=== PATIENT | female | born 1990 | race Caucasian/White ===

== ENCOUNTER 2018-02-28 17:50 | Emergency (ER) | payer SELFPAY ==
[2018-02-28] MEDS ORDERED: Ketorolac 60 MG/2 ML SDV IM ONE (18:13)
--- NOTE | 2018-02-28 18:14 | EDM.PDOC ---
ED HPI GENERAL MEDICAL PROBLEM - General Chief Complaint: Back Pain or Injury Stated Complaint: BACK PAIN Time Seen by Provider: 02/28/18 18:09 Source of Information: Reports: Patient History Limitations: Reports: No Limitations - History of Present Illness INITIAL COMMENTS - FREE TEXT/NARRATIVE: HISTORY AND PHYSICAL: []28-year-old female presenting with left hip pain History of Present Illness: []Patient has history of sciatica in the right now she awakened yesterday with having pain to the left lower buttock Review of Systems: As per history of present illness and below otherwise all systems reviewed and negative. Past medical history: As per history of present illness and as reviewed below otherwise noncontributory. Surgical history: As per history of present illness and as reviewed below otherwise noncontributory. Social history: No reported history of drug or alcohol abuse. Family history: As per history of present illness and as reviewed below otherwise noncontributory. Physical exam: Alert and oriented answering questions appropriately in full sentences without any shortness of breath. Difficulty with moving to standing position from sitting HEENT: Atraumatic, normocehpalic, pupils reactive, negative for conjunctival pallor or scleral icterus, mucous membranes moist, throat clear, neck supple, nontender, trachea midline. Lungs: Clear to auscultation, breath sounds equal bilaterally, chest non tender. Heart: S1S2, regular, negative for clicks, rubs, or JVD. Abdomen: Soft, nondistended, nontender. Negative for masses or hepatossplenmegaly. Negative for costovertebral tenderness. Skin was tenderness with palpation to the left sciatic. Her knee almost opal. Pelvis: Stable nontender. Genitourinary: Deferred. Rectal: Deferred Extremities: Atraumatic, negative for cords or calf pain. Neurovascular unremarkable. Neuro: Awake, alert, oriented. Cranial nerves II through XII unremarkable. Cerebellum unremarkable. Motor and sensory unremarkable throughout. Exam nonfocal. Diagnostics: [] Therapeutics: [] Impression: []Left sciatica Plan: []Discharged home Flexeril 10 mg 3 times a day when necessary muscle spasm Diclofenac Physical therapy Follow-up with your primary care provider Return to the emergency department as directed Definitive disposition and diagnosis as appropriate pending reevaluation and review of above. Onset: Sudden Duration: Day(s): Left Lower Back Pain Score (Numeric/FACES): 10 - Related Data Allergies Allergy/AdvReac Type Severity Reaction Status Date / Time No Known Allergies Allergy Verified 02/28/18 18:02 Home Meds: Home Meds Cyclobenzaprine [Flexeril] 10 mg PO TID PRN #21 tab 02/28/18 [Rx] Diclofenac Sodium [Voltaren] 75 mg PO BIDMEALS #20 tab.cr 02/28/18 [Rx] methylPREDNISolone [Medrol] 4 mg PO ASDIRECTED #1 dospk 02/28/18 [Rx] Past Medical History - Past Health History Medical/Surgical History: Denies Medical/Surgical History Social & Family History - Tobacco Use Smoking Status *Q: Current Every Day Smoker Years of Tobacco use: 9 Packs/Tins Daily: 0.5 - Caffeine Use Caffeine Use: Reports: Soda - Recreational Drug Use Recreational Drug Use: No ED ROS GENERAL - Review of Systems Review Of Systems: ROS reveals no pertinent complaints other than HPI. ED EXAM,LOWER BACK PAIN/INJURY - Physical Exam Exam: See Below (see dictation) Course - Vital Signs Last Recorded V/S: Last Vital Signs Temp 36.5 C 02/28/18 17:58 Pulse 100 02/28/18 17:58 Resp 18 02/28/18 17:58 BP 124/77 02/28/18 17:58 Pulse Ox 99 02/28/18 17:58 Departure - Departure Time of Disposition: 18:12 Disposition: Home, Self-Care 01 Condition: Good Clinical Impression: Sciatica Qualifiers: Laterality: left Qualified Code(s): M54.32 - Sciatica, left side - Discharge Information *PRESCRIPTION DRUG MONITORING PROGRAM REVIEWED*: Not Applicable *COPY OF PRESCRIPTION DRUG MONITORING REPORT IN PATIENT MILADYS: Not Applicable Prescriptions: Cyclobenzaprine [Flexeril] 10 mg PO TID PRN #21 tab PRN Reason: Muscle Spasm Diclofenac Sodium [Voltaren] 75 mg PO BIDMEALS #20 tab.cr methylPREDNISolone [Medrol] 4 mg PO ASDIRECTED #1 dospk Instructions: Back Exercises, [id number], Sciatica Rehab-SportsMed Referrals: PCP,None [Primary Care Provider] - Additional Instructions: The following information is given to patients seen in the emergency department who are being discharged to home. This information is to outline your options for follow-up care. We provide all patients seen in our emergency department with a follow-up referral. The need for follow-up, as well as the timing and circumstances, are variable depending upon the specifics of your emergency department visit. If you don't have a primary care physician on staff, we will provide you with a referral. We always advise you to contact your personal physician following an emergency department visit to inform them of the circumstance of the visit and for follow-up with them and/or the need for any referrals to a consulting specialist. The emergency department will also refer you to a specialist when appropriate. This referral assures that you have the opportunity for followup care with a specialist. All of these measure are taken in an effort to provide you with optimal care, which includes your followup. Under all circumstances we always encourage you to contact your private physician who remains a resource for coordinating your care. When calling for followup care, please make the office aware that this follow-up is from your recent emergency room visit. If for any reason you are refused follow-up, please contact the [facility] emergency department at and asked to speak to the emergency department charge nurse. Discharged home Flexeril 10 mg 3 times a day when necessary muscle spasm Diclofenac Physical therapy Follow-up with your primary care provider Return to the emergency department as directed Definitive disposition and diagnosis as appropriate pending reevaluation and review of above.
== END 2018-02-28 18:42 | disposition home or self-care (01) ==
LOC: MW.ED 17:50
DX: M54.42 Lumbago with sciatica, left side (principal); F17.210 Nicotine dependence, cigarettes, uncomplicated
CPT/HCPCS: 96372; 99283; J1885

== ENCOUNTER 2018-04-10 08:08 | Emergency (ER) | payer BC ==
--- NOTE | 2018-04-10 08:23 | EDM.PDOC ---
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 Review of systems: As per history of present illness and below otherwise all systems reviewed and negative. Past medical history: As per history of present illness and as reviewed below otherwise noncontributory. Surgical history: As per history of present illness and as reviewed below otherwise noncontributory. Social history: No reported history of drug or alcohol abuse. Family history: As per history of present illness and as reviewed below otherwise noncontributory. Physical exam: HEENT: Atraumatic, normocephalic, pupils reactive, negative for conjunctival pallor or scleral icterus, mucous membranes moist, throat clear, neck supple, nontender, trachea midline. Lungs: Clear to auscultation, breath sounds equal bilaterally, chest nontender. Heart: S1S2, regular, negative for clicks, rubs, or JVD. Abdomen: Soft, nondistended, nontender. Negative for masses or hepatosplenomegaly. Negative for costovertebral tenderness. Pelvis: Stable nontender. Genitourinary: Deferred. Rectal: Deferred. Extremities: Atraumatic, negative for cords or calf pain. Neurovascular unremarkable. Neuro: Awake, alert, oriented. Cranial nerves II through XII unremarkable. Cerebellum unremarkable. Motor and sensory unremarkable throughout. Exam nonfocal. Diagnostics: HCG Therapeutics: None Impression: 1 medical screening exam #2 history of Definitive disposition and diagnosis as appropriate pending reevaluation and review of above. - Related Data Allergies Allergy/AdvReac Type Severity Reaction Status Date / Time No Known Allergies Allergy Verified 04/10/18 08:16 Home Meds: Home Meds . 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 Musculoskeletal History: Reports: None Neurological History: Reports: None Psychiatric History: Reports: None Endocrine/Metabolic History: Reports: None Hematologic History: Reports: None Immunologic History: Reports: None Oncologic (Cancer) History: Reports: None Dermatologic History: Reports: None - Past Surgical History Head Surgeries/Procedures: Reports: None HEENT Surgical History: Reports: None Cardiovascular Surgical History: Reports: None Respiratory Surgical History: Reports: None GI Surgical History: Reports: None Female Surgical History: Reports: None Endocrine Surgical History: Reports: None Neurological Surgical History: Reports: None Musculoskeletal Surgical History: Reports: None Oncologic Surgical History: Reports: None Dermatological Surgical History: Reports: None Social & Family History - Family History Family Medical History: Noncontributory - Tobacco Use Smoking Status *Q: Current Every Day Smoker Years of Tobacco use: 10 Packs/Tins Daily: 1 - Caffeine Use Caffeine Use: Reports: Soda, Tea - Recreational Drug Use Recreational Drug Use: No ED ROS GENERAL - Review of Systems Review Of Systems: ROS reveals no pertinent complaints other than HPI. ED EXAM, GENERAL - Physical Exam Exam: See Below (See dictation) Course - Vital Signs Last Recorded V/S: Last Vital Signs Temp 36.2 C 04/10/18 08:17 Pulse 122 H 04/10/18 08:17 Resp 18 04/10/18 08:17 BP 143/88 H 04/10/18 08:17 Pulse Ox 97 04/10/18 08:17 - Orders/Labs/Meds Orders: Active Orders 24 hr Category Date Time Status HCG QUALITATIVE,URINE [URCHEM] Stat Lab 04/10/18 08:21 Ordered Departure - Departure Time of Disposition: 08:22 Disposition: Home, Self-Care 01 Condition: Good Clinical Impression: Encounter for medical screening examination - Discharge Information Referrals: PCP,Unknown [Primary Care Provider] - Additional Instructions: The following information is given to patients seen in the emergency department who are being discharged to home. This information is to outline your options for follow-up care. We provide all patients seen in our emergency department with a follow-up referral. The need for follow-up, as well as the timing and circumstances, are variable depending upon the specifics of your emergency department visit. If you don't have a primary care physician on staff, we will provide you with a referral. We always advise you to contact your personal physician following an emergency department visit to inform them of the circumstance of the visit and for follow-up with them and/or the need for any referrals to a consulting specialist. The emergency department will also refer you to a specialist when appropriate. This referral assures that you have the opportunity for followup care with a specialist. All of these measure are taken in an effort to provide you with optimal care, which includes your followup. Under all circumstances we always encourage you to contact your private physician who remains a resource for coordinating your care. When calling for followup care, please make the office aware that this follow-up is from your recent emergency room visit. If for any reason you are refused follow-up, please contact the [facility] emergency department at and asked to speak to the emergency department charge nurse. [facility] - Women's Health [address] [place] [id number] Follow-up for routine appointment with women's health above as discussed stop smoking and return as needed as discussed - My Orders Last 24 Hours: My Active Orders 04/10/18 08:21 HCG QUALITATIVE,URINE [URCHEM] Stat - Assessment/Plan Last 24 Hours: My Active Orders 04/10/18 08:21 HCG QUALITATIVE,URINE [URCHEM] Stat
== END 2018-04-10 09:01 | disposition home or self-care (01) ==
LOC: MW.ED 08:08
DX: Z32.01 Encounter for pregnancy test, result positive (principal); F17.210 Nicotine dependence, cigarettes, uncomplicated
CPT/HCPCS: 81025; 99283

== ENCOUNTER 2018-04-14 20:56 | Observation (INO) | payer SELFPAY ==
--- NOTE | 2018-04-14 21:23 | EDM.PDOC ---
<Ludin Zendejas - Last Filed: 04/14/18 21:40> ED HPI GENERAL MEDICAL PROBLEM - General Chief Complaint: JOURNALIST Problem Stated Complaint: PT AND WEAK Time Seen by Provider: 04/14/18 21:18 Source of Information: Reports: Patient History Limitations: Reports: No Limitations - History of Present Illness INITIAL COMMENTS - FREE TEXT/NARRATIVE: HISTORY AND PHYSICAL: History of present illness: Patient is a 28-year-old female here with complaint of abdominal in . She is uncertain how far along she is but had a light bleeding on 03/31 and last normal menses middle of February. She has history of 2 spontaneous abortions. She denies any vaginal bleeding or discharge. States pain in her lower mid abdomen began 30 minutes prior to arrival to the ED. She denies fevers, chills, nausea, vomiting, diarrhea. Review of systems: As per history of present illness and below otherwise all systems reviewed and negative. Past medical history: As per history of present illness and as reviewed below otherwise noncontributory. Surgical history: As per history of present illness and as reviewed below otherwise noncontributory. Social history: No reported history of drug or alcohol abuse. Family history: As per history of present illness and as reviewed below otherwise noncontributory. Physical exam: General: Patient sitting comfortably in no acute distress and nontoxic appearing HEENT: Atraumatic, normocephalic, pupils reactive, negative for conjunctival pallor or scleral icterus, mucous membranes moist, throat clear, neck supple, nontender, trachea midline. No meningeal signs. Lungs: Clear to auscultation, breath sounds equal bilaterally, chest nontender. Heart: S1S2, regular, negative for clicks, rubs, or overt murmur. Abdomen: Mild lower abdominal tenderness to palpation. Soft, nondistended. Negative for masses or hepatosplenomegaly. Negative for costovertebral tenderness. Pelvis: Stable nontender. Genitourinary: Deferred. Rectal: Deferred. Extremities: Atraumatic, negative for cords or calf pain. Neurovascular unremarkable. Neuro: Awake, alert, oriented. Cranial nerves II through XII unremarkable. Cerebellum unremarkable. Motor and sensory unremarkable throughout. Exam nonfocal. Notes: Diagnostics: CBC, CMP, hcg quant, UA, OB US Therapeutics: [] Prescriptions: Impression: Abdominal pain in Plan: [] Definitive disposition and diagnosis as appropriate pending reevaluation and review of above. Lower Abdomen Pain Score (Numeric/FACES): 10 - Related Data Allergies Allergy/AdvReac Type Severity Reaction Status Date / Time No Known Allergies Allergy Verified 04/14/18 21:09 Home Meds: Home Meds . 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: , Spontaneous Musculoskeletal History: Reports: None Neurological History: Reports: None Psychiatric History: Reports: None Endocrine/Metabolic History: Reports: None Hematologic History: Reports: None Immunologic History: Reports: None Oncologic (Cancer) History: Reports: None Dermatologic History: Reports: None - Past Surgical History Head Surgeries/Procedures: Reports: None HEENT Surgical History: Reports: None Cardiovascular Surgical History: Reports: None Respiratory Surgical History: Reports: None GI Surgical History: Reports: None Female Surgical History: Reports: None Endocrine Surgical History: Reports: None Neurological Surgical History: Reports: None Musculoskeletal Surgical History: Reports: None Oncologic Surgical History: Reports: None Dermatological Surgical History: Reports: None Social & Family History - Family History Family Medical History: Noncontributory - Tobacco Use Smoking Status *Q: Current Every Day Smoker Years of Tobacco use: 12 Packs/Tins Daily: 1 - Caffeine Use Caffeine Use: Reports: Soda, Tea - Recreational Drug Use Recreational Drug Use: No ED ROS GENERAL - Review of Systems Review Of Systems: ROS reveals no pertinent complaints other than HPI. ED EXAM, GI/ABD - Physical Exam Exam: See Below (see dictation) Course - Vital Signs Last Recorded V/S: Last Vital Signs Temp 35.4 C 04/14/18 21:07 Pulse 91 04/14/18 21:07 Resp 18 04/14/18 21:07 BP 107/77 04/14/18 21:07 Pulse Ox 100 04/14/18 21:07 - Orders/Labs/Meds Orders: Active Orders 24 hr Category Date Time Status Patient Status [ADT] Stat ADT 04/14/18 23:27 Ordered CULTURE URINE [RM] Stat Lab 04/14/18 21:20 Received TYPE AND SCREEN [BBK] Stat Lab 04/14/18 23:27 Ordered Sodium Chloride 0.9% [Normal Saline] 1,000 ml Med 04/14/18 23:25 Ordered IV STAT Medication Orders Sodium Chloride (Normal Saline) 1,000 mls @ 999 mls/hr IV STAT ONE Stop: 04/15/18 00:25 Labs: Laboratory Tests 04/14/18 04/14/18 04/14/18 Range/Units 21:20 21:25 21:25 WBC 10.27 (4.0-11.0) K/uL RBC 3.87 L (4.30-5.90) M/uL Hgb 13.4 (12.0-16.0) g/dL Hct 38.1 (36.0-46.0) % MCV 98.4 H (80.0-98.0) fL MCH 34.6 H (27.0-32.0) pg MCHC 35.2 (31.0-37.0) g/dL RDW Std Deviation 42.8 (28.0-62.0) fl RDW Coeff of Jesus 12 (11.0-15.0) % Plt Count 241 (150-400) K/uL MPV 10.00 (7.40-12.00) fL Neut % (Auto) 61.0 (48.0-80.0) % Lymph % (Auto) 31.4 (16.0-40.0) % [place] % (Auto) 6.6 (0.0-15.0) % Eos % (Auto) 0.8 (0.0-7.0) % Baso % (Auto) 0.2 (0.0-1.5) % Neut # (Auto) 6.3 H (1.4-5.7) K/uL Lymph # (Auto) 3.2 H (0.6-2.4) K/uL [place] # (Auto) 0.7 (0.0-0.8) K/uL Eos # (Auto) 0.1 (0.0-0.7) K/uL Baso # (Auto) 0.0 (0.0-0.1) K/uL Nucleated RBC % 0.0 /100WBC Nucleated RBCs # 0 K/uL Sodium 136 (136-145) mmol/L Potassium 3.8 (3.5-5.1) mmol/L Chloride 102 (98-107) mmol/L Carbon Dioxide 27.6 (21.0-32.0) mmol/L BUN 10 (7.0-18.0) mg/dL Creatinine 0.8 (0.6-1.0) mg/dL Est Cr Clr Drug Dosing 110.39 mL/min Estimated GFR (MDRD) > 60.0 ml/min Glucose 137 H (74-106) mg/dL Calcium 8.8 (8.5-10.1) mg/dL Total Bilirubin 0.4 (0.2-1.0) mg/dL AST 18 (15-37) IU/L ALT 27 (14-63) IU/L Alkaline Phosphatase 88 (46-116) U/L Total Protein 6.8 (6.4-8.2) g/dL Albumin 3.4 (3.4-5.0) g/dL Globulin 3.4 (2.6-4.0) g/dL Albumin/Globulin Ratio 1.0 (0.9-1.6) HCG, Quant mIU/mL Urine Color DARK YELLOW Urine Appearance CLOUDY Urine pH 5.5 (5.0-8.0) Ur Specific [place] >= 1.030 (1.001-1.035) Urine Protein TRACE H (NEGATIVE) mg/dL Urine Glucose (UA) NEGATIVE (NEGATIVE) mg/dL Urine Ketones TRACE H (NEGATIVE) mg/dL Urine Occult Blood NEGATIVE (NEGATIVE) Urine Nitrite NEGATIVE (NEGATIVE) Urine Bilirubin SMALL H (NEGATIVE) Urine Ictotest NEGATIVE Urine Urobilinogen 1.0 (<2.0) EU/dL Ur Leukocyte Esterase TRACE H (NEGATIVE) Urine RBC NONE SEEN (0-2/HPF) Urine WBC 3-5 (0-5/HPF) Ur Squamous Epith Cells MODERATE Urine Bacteria 3+ H (NEGATIVE) Urine Mucus LIGHT (NONE-MOD) 04/14/18 Range/Units 21:25 WBC (4.0-11.0) K/uL RBC (4.30-5.90) M/uL Hgb (12.0-16.0) g/dL Hct (36.0-46.0) % MCV (80.0-98.0) fL MCH (27.0-32.0) pg MCHC (31.0-37.0) g/dL RDW Std Deviation (28.0-62.0) fl RDW Coeff of Jesus (11.0-15.0) % Plt Count (150-400) K/uL MPV (7.40-12.00) fL Neut % (Auto) (48.0-80.0) % Lymph % (Auto) (16.0-40.0) % [place] % (Auto) (0.0-15.0) % Eos % (Auto) (0.0-7.0) % Baso % (Auto) (0.0-1.5) % Neut # (Auto) (1.4-5.7) K/uL Lymph # (Auto) (0.6-2.4) K/uL [place] # (Auto) (0.0-0.8) K/uL Eos # (Auto) (0.0-0.7) K/uL Baso # (Auto) (0.0-0.1) K/uL Nucleated RBC % /100WBC Nucleated RBCs # K/uL Sodium (136-145) mmol/L Potassium (3.5-5.1) mmol/L Chloride (98-107) mmol/L Carbon Dioxide (21.0-32.0) mmol/L BUN (7.0-18.0) mg/dL Creatinine (0.6-1.0) mg/dL Est Cr Clr Drug Dosing mL/min Estimated GFR (MDRD) ml/min Glucose (74-106) mg/dL Calcium (8.5-10.1) mg/dL Total Bilirubin (0.2-1.0) mg/dL AST (15-37) IU/L ALT (14-63) IU/L Alkaline Phosphatase (46-116) U/L Total Protein (6.4-8.2) g/dL Albumin (3.4-5.0) g/dL Globulin (2.6-4.0) g/dL Albumin/Globulin Ratio (0.9-1.6) HCG, Quant 6769.0 mIU/mL Urine Color Urine Appearance Urine pH (5.0-8.0) Ur Specific [place] (1.001-1.035) Urine Protein (NEGATIVE) mg/dL Urine Glucose (UA) (NEGATIVE) mg/dL Urine Ketones (NEGATIVE) mg/dL Urine Occult Blood (NEGATIVE) Urine Nitrite (NEGATIVE) Urine Bilirubin (NEGATIVE) Urine Ictotest Urine Urobilinogen (<2.0) EU/dL Ur Leukocyte Esterase (NEGATIVE) Urine RBC (0-2/HPF) Urine WBC (0-5/HPF) Ur Squamous Epith Cells Urine Bacteria (NEGATIVE) Urine Mucus (NONE-MOD) Meds: Medications Generic Name Dose Route Start Last Admin Trade Name Freq PRN Reason Stop Dose Admin Sodium Chloride 1,000 mls @ 999 mls/hr 04/14/18 23:25 Normal Saline IV 04/15/18 00:25 STAT ONE Departure - Departure Disposition: Refer to Observation Clinical Impression: Urinary tract infection, Abdominal pain, - Discharge Information Referrals: PCP,None [Primary Care Provider] - Forms: ED Department Discharge - My Orders Last 24 Hours: My Active Orders 04/14/18 23:25 Sodium Chloride 0.9% [Normal Saline] 1,000 ml IV STAT 04/14/18 23:27 Patient Status [ADT] Stat TYPE AND SCREEN [BBK] Stat - Assessment/Plan Last 24 Hours: My Active Orders 04/14/18 23:25 Sodium Chloride 0.9% [Normal Saline] 1,000 ml IV STAT 04/14/18 23:27 Patient Status [ADT] Stat TYPE AND SCREEN [BBK] Stat <Saul Mcnamara - Last Filed: 04/14/18 23:32> Course - Vital Signs Text/Narrative:: Patient's emergency department course has been unremarkable quantitative beta was reportedly 6700 and pelvic ultrasound did not demonstrate an intrauterine there was no other abnormal findings within the adnexa I discussed case with who agrees and is concerned similarly about ectopic he graciously accepted patient for admission type and screen was added saline was initiated in 1 L bolus I discussed case with patient and significant other who understand and are in agreement patient also is noted to have urinary tract infection Rocephin 1 g was Departure - Departure Time of Disposition: 23:31 Condition: Good
[2018-04-14 21:54] LABS: CHLORIDE,CL 102 mmol/L (98-107); SODIUM,NA 136 mmol/L (136-145)
--- NOTE | 2018-04-14 23:12 | US ---
INDICATION: Vaginal pressure, positive test on April 07, 2018, LMP March 30, 2018. TECHNIQUE: Ultrasound pelvis transvaginal for better assessment or to better visualize the endometrium. Real-time sonographic images with spectral and color Doppler imaging of the ovaries were obtained. COMPARISON: None FINDINGS: No intrauterine or extrauterine gestation identified. Small amount of free fluid in the left adnexa. Uterus: Normal echotexture of the myometrium. No masses. Endometrium: Transvaginal imaging was performed to better evaluate the endometrium. 8 mm in thickness. No sign of endometrial mass or fluid. The ovaries were not visualized due to large amount of bowel in the pelvis. IMPRESSION: Limited study. Ovaries are not visualized due to overlying bowel. No intrauterine or extrauterine gestation is identified. Small amount of free fluid in the left adnexa. Dictated by Celine Neal MD @ Apr 14 2018 11:08PM Signed by Dr. Celine Neal @ Apr 14 2018 11:11PM
[2018-04-14] MEDS ORDERED: Sodium Chloride 0.9% 1,000 ML IV ONE (23:25)
[2018-04-14] MEDS ORDERED: cefTRIAXone 1 GM in Premix Bag 1 BAG IV ONE (23:32)
[2018-04-15] MEDS ORDERED: Morphine 10 MG/ML Syringe IVPUSH PRN (00:04)
[2018-04-15] MEDS: Sodium Chloride 0.9% 1,000 ML IV SCH ×2 (04:05→12:37)
--- NOTE | 2018-04-15 13:04 | US ---
EXAMINATION: Transvaginal obstetric ultrasound HISTORY: Elevated hCG COMPARISON: 04/14/2018 TECHNIQUE: Grayscale, color Doppler, and M-mode imaging obtained. FINDINGS: The uterus is normal in size, contour, and echogenicity. Endometrial stripe thickness appears normal. There is a round cystic collection noted within the left adnexa with prominence of the adjacent fallopian tubes. A cystic collection contains a yolk sac and pole. Subtle cardiac activity was noted. There is a small to moderate amount of free pelvic fluid. The right ovary was not identified. IMPRESSION: 1. Single live left tubal . 2. The right ovary was not well characterized.
--- NOTE | 2018-04-15 13:13 | PCM.PREANE ---
Preanesthetic Assessment - Anesthesia/Transfusion/Family Hx Anesthesia History: Prior Anesthesia Without Reaction Family History of Anesthesia Reaction: No Transfusion History: No Prior Transfusion(s) - Review of Systems General: No Symptoms Pulmonary: No Symptoms Cardiovascular: No Symptoms Gastrointestinal: No Symptoms Neurological: No Symptoms Other: Reports: None - Physical Assessment NPO Status Date: 04/14/18 O2 Sat by Pulse Oximetry: 96 Respiratory Rate: 16 Vital Signs: Last Vital Signs Temp 97.4 F 04/15/18 08:00 Pulse 87 04/15/18 08:00 Resp 16 04/15/18 08:00 BP 112/53 L 04/15/18 08:00 Pulse Ox 96 04/15/18 08:00 Height: 5 ft 9 in Weight: 117.39 kg ASA Class: 1 Mental Status: Alert & Oriented x3 Airway Class: Mallampati = 1 Dentition: Reports: Normal Dentition ROM/Head Extension: Full Lungs: Clear to Auscultation, Normal Respiratory Effort Cardiovascular: Regular Rate, Regular Rhythm - Lab Values: Laboratory Last Values WBC 10.27 K/uL (4.0-11.0) 04/14/18 21:25 RBC 3.87 M/uL (4.30-5.90) L 04/14/18 21:25 Hgb 12.1 g/dL (12.0-16.0) 04/15/18 04:55 Hct 35.4 % (36.0-46.0) L 04/15/18 04:55 MCV 98.4 fL (80.0-98.0) H 04/14/18 21:25 MCH 34.6 pg (27.0-32.0) H 04/14/18 21:25 MCHC 35.2 g/dL (31.0-37.0) 04/14/18 21:25 RDW Std Deviation 42.8 fl (28.0-62.0) 04/14/18 21: RDW Coeff of Jesus 12 % (11.0-15.0) 04/14/18 21: Plt Count 241 K/uL (150-400) 04/14/18 21:25 MPV 10.00 fL (7.40-12.00) 04/14/18 21:25 Neut % (Auto) 61.0 % (48.0-80.0) 04/14/18 21:25 Lymph % (Auto) 31.4 % (16.0-40.0) 04/14/18: [place] % (Auto) 6.6 % (0.0-15.0) 04/14/18: Eos % (Auto) 0.8 % (0.0-7.0) 04/14/18: Baso % (Auto) 0.2 % (0.0-1.5) 04/14/18: Neut # (Auto) 6.3 K/uL (1.4-5.7) H 04/14/18: Lymph # (Auto) 3.2 K/uL (0.6-2.4) H 04/14/18: [place] # (Auto) 0.7 K/uL (0.0-0.8) 04/14/18: Eos # (Auto) 0.1 K/uL (0.0-0.7) 04/14/18: Baso # (Auto) 0.0 K/uL (0.0-0.1) 04/14/18: Nucleated RBC % 0.0 /100WBC 04/14/18: Nucleated RBCs # 0 K/uL 04/14/18 21: Sodium 136 mmol/L (136-145) 04/14/18: Potassium 3.8 mmol/L (3.5-5.1) 04/14/18: Chloride 102 mmol/L (98-107) 04/14/18: Carbon Dioxide 27.6 mmol/L (21.0-32.0) 04/14/18 21: BUN 10 mg/dL (7.0-18.0) 04/14/18: Creatinine 0.8 mg/dL (0.6-1.0) 04/14/18: Est Cr Clr Drug Dosing 110.39 mL/min 04/14/18 21:25 Estimated GFR (MDRD) > 60.0 ml/min 04/14/18: Glucose 137 mg/dL (74-106) H 04/14/18: Calcium 8.8 mg/dL (8.5-10.1) 02/21/19 21:25 Total Bilirubin 0.4 mg/dL (0.2-1.0) 04/14/18 21:25 AST 18 IU/L (15-37) 04/14/18 21:25 ALT 27 IU/L (14-63) 04/14/18 21:25 Alkaline Phosphatase 88 U/L (46-116) 04/14/18 21:25 Total Protein 6.8 g/dL (6.4-8.2) 04/14/18 21:25 Albumin 3.4 g/dL (3.4-5.0) 04/14/18 21: Globulin 3.4 g/dL (2.6-4.0) 04/14/18 21: Albumin/Globulin Ratio 1.0 (0.9-1.6) 04/14/18 21:25 HCG, Qual POSITIVE (NEG) H 04/15/18 04:59 HCG, Quant 7393.0 mIU/mL 04/15/18 09:35 Urine Color DARK YELLOW 04/14/18 21:20 Urine Appearance CLOUDY 04/14/18 21:20 Urine pH 5.5 (5.0-8.0) 04/14/18 21:20 Ur Specific [place] >= 1.030 (1.001-1.035) 04/14/18 21:20 Urine Protein TRACE mg/dL (NEGATIVE) H 04/14/18 21:20 Urine Glucose (UA) NEGATIVE mg/dL (NEGATIVE) 04/14/18 21:20 Urine Ketones TRACE mg/dL (NEGATIVE) H 04/14/18 21:20 Urine Occult Blood NEGATIVE (NEGATIVE) 04/14/18 21:20 Urine Nitrite NEGATIVE (NEGATIVE) 04/14/18 21:20 Urine Bilirubin SMALL (NEGATIVE) H 04/14/18 21:20 Urine Ictotest NEGATIVE 04/14/18 21:20 Urine Urobilinogen 1.0 EU/dL (<2.0) 04/14/18 21:20 Ur Leukocyte Esterase TRACE (NEGATIVE) H 04/14/18 21:20 Urine RBC NONE SEEN (0-2/HPF) 04/14/18 21:20 Urine WBC 3-5 (0-5/HPF) 04/14/18 21:20 Ur Squamous Epith Cells MODERATE 04/14/18 21:20 Urine Bacteria 3+ (NEGATIVE) H 04/14/18 21:20 Urine Mucus LIGHT (NONE-MOD) 04/14/18 21:20 Blood Type A POSITIVE 04/14/18 23:37 Antibody Screen NEGATIVE 04/14/18 23:37 - Allergies Allergies/Adverse Reactions: Allergies Allergy/AdvReac Type Severity Reaction Status Date / Time No Known Allergies Allergy Verified 04/14/18 21:09 - Blood Blood Available: No - Anesthesia Plan Pre-Op Medication Ordered: None - Acknowledgements Anesthesia Type Planned: General Anesthesia Pt an Appropriate Candidate for the Planned Anesthesia: Yes Alternatives and Risks of Anesthesia Discussed w Pt/Guardian: Yes Pt/Guardian Understands and Agrees with Anesthesia Plan: Yes Additional Comments: PMH: tubal ectopic PLAN: GET PreAnesthesia Questionnaire - Past Health History Medical/Surgical History: Denies Medical/Surgical History HEENT History: Reports: None Cardiovascular History: Reports: None Respiratory History: Reports: None Gastrointestinal History: Reports: None Genitourinary History: Reports: None 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: , Spontaneous Musculoskeletal History: Reports: None Neurological History: Reports: None Psychiatric History: Reports: None Endocrine/Metabolic History: Reports: None Hematologic History: Reports: None Immunologic History: Reports: None Oncologic (Cancer) History: Reports: None Dermatologic History: Reports: None - Past Surgical History Head Surgeries/Procedures: Reports: None HEENT Surgical History: Reports: None Cardiovascular Surgical History: Reports: None Respiratory Surgical History: Reports: None GI Surgical History: Reports: None Female Surgical History: Reports: None Endocrine Surgical History: Reports: None Neurological Surgical History: Reports: None Musculoskeletal Surgical History: Reports: None Oncologic Surgical History: Reports: None Dermatological Surgical History: Reports: None - SUBSTANCE USE Smoking Status *Q: Current Every Day Smoker Tobacco Use Within Last Twelve Months: Cigarettes Second Hand Smoke Exposure: Yes Recreational Drug Use History: No - HOME MEDS Home Medications: Home Meds . [No Known Home Meds] 04/10/18 [History] - CURRENT (IN HOUSE) MEDS Current Meds: Current Medications Sodium Chloride (Normal Saline) 1,000 mls @ 125 mls/hr IV ASDIRECTED [facility] Last Admin: 04/15/18 12:37 Dose: 125 mls/hr Morphine Sulfate (Morphine) 5 - 8 mg IVPUSH Q4H PRN PRN Reason: Pain (severe 7-10) Discontinued Medications Sodium Chloride (Normal Saline) 1,000 mls @ 999 mls/hr IV STAT ONE Stop: 04/15/18 00:25 Last Admin: 04/14/18 23:42 Dose: 999 mls/hr Ceftriaxone Sodium/Dextrose 1 (gm/ Premix) 50 mls @ 100 mls/hr IV ONETIME ONE Stop: 04/15/18 00:01 Last Admin: 04/14/18 23:49 Dose: 100 mls/hr
--- NOTE | 2018-04-15 13:35 | PCM.HP ---
H&P History of Present Illness - General Date of Service: 04/15/18 Admit Problem/Dx: Admission Diagnosis/Problem Admission Diagnosis/Problem Abdominal pain Source of Information: Patient History Limitations: Reports: No Limitations - History of Present Illness Onset of Symptoms: Reports: Today, Sudden Improves with: Reports: None Worsens with: Reports: None Associated Symptoms: Reports: No Other Symptoms Lower Abdomen Pain Score (Numeric/FACES): 2 - Related Data Allergies/Adverse Reactions: Allergies Allergy/AdvReac Type Severity Reaction Status Date / Time No Known Allergies Allergy Verified 04/14/18 21:09 Home Medications: Home Meds . 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: , Spontaneous Musculoskeletal History: Reports: None Neurological History: Reports: None Psychiatric History: Reports: None Endocrine/Metabolic History: Reports: None Hematologic History: Reports: None Immunologic History: Reports: None Oncologic (Cancer) History: Reports: None Dermatologic History: Reports: None - Past Surgical History Head Surgeries/Procedures: Reports: None HEENT Surgical History: Reports: None Cardiovascular Surgical History: Reports: None Respiratory Surgical History: Reports: None GI Surgical History: Reports: None Female Surgical History: Reports: None Endocrine Surgical History: Reports: None Neurological Surgical History: Reports: None Musculoskeletal Surgical History: Reports: None Oncologic Surgical History: Reports: None Dermatological Surgical History: Reports: None Social & Family History - Family History Family Medical History: Noncontributory - Tobacco Use Smoking Status *Q: Current Every Day Smoker Years of Tobacco use: 12 Packs/Tins Daily: 1 Used Tobacco, but Quit: No Second Hand Smoke Exposure: Yes - Caffeine Use Caffeine Use: Reports: Coffee, Energy Drinks - Recreational Drug Use Recreational Drug Use: No H&P Review of Systems - Review of Systems: Review Of Systems: See Below General: Reports: No Symptoms HEENT: Reports: No Symptoms Pulmonary: Reports: No Symptoms Cardiovascular: Reports: No Symptoms Gastrointestinal: Reports: No Symptoms Genitourinary: Reports: No Symptoms Musculoskeletal: Reports: No Symptoms Skin: Reports: No Symptoms Psychiatric: Reports: No Symptoms Neurological: Reports: No Symptoms Hematologic/Lymphatic: Reports: No Symptoms Immunologic: Reports: No Symptoms Exam - Exam Exam: See Below - Vital Signs Vital Signs: Last Vital Signs Temp 36.3 C 04/15/18 08:00 Pulse 87 04/15/18 08:00 Resp 16 04/15/18 13:13 BP 112/53 L 04/15/18 08:00 Pulse Ox 96 04/15/18 13:13 Weight: 117.39 kg - Exam General: Alert, Oriented, 4 HEENT: PERRLA, Hearing Intact, Mucosa Moist & [place], Nares Patent, Normal Nasal Septum, Posterior Pharynx Clear, Conjunctiva Clear, EOMI, EACs Clear, TMs Clear Neck: Supple, Trachea Midline, 2 Lungs: Clear to Auscultation, Normal Respiratory Effort Cardiovascular: Regular Rate, Regular Rhythm GI/Abdominal Exam: Normal Bowel Sounds, Soft, Non-Tender, No Organomegaly, No Distention, No Abnormal Bruit, No Mass, Pelvis Stable (Female) Exam: Normal External Exam, Normal Speculum Exam, Normal Bimanual Exam Rectal (Female) Exam: Normal Exam, Normal Rectal Tone Back Exam: Normal Inspection, Full Range of Motion, NT Extremities: Normal Inspection, Normal Range of Motion, Non-Tender, No Pedal Edema, Normal Capillary Refill Skin: Warm, Dry, Intact Neurological: Cranial Nerves Intact, Reflexes Equal Bilateral Neuro Extensive - Mental Status: Alert, Oriented x3, Normal Mood/Affect, Normal Cognition Neuro Extensive - Motor, Sensory, Reflexes: CN II-XII Intact, Normal Gait, Normal Reflexes Psychiatric: Alert, Normal Affect, Normal Mood - Patient Data Lab Results Last 24 hrs: Laboratory Results - last 24 hr 04/14/18 04/14/18 04/14/18 Range/Units 21:20 21:25 21:25 WBC 10.27 (4.0-11.0) K/uL RBC 3.87 L (4.30-5.90) M/uL Hgb 13.4 (12.0-16.0) g/dL Hct 38.1 (36.0-46.0) % MCV 98.4 H (80.0-98.0) fL MCH 34.6 H (27.0-32.0) pg MCHC 35.2 (31.0-37.0) g/dL RDW Std Deviation 42.8 (28.0-62.0) fl RDW Coeff of Jesus 12 (11.0-15.0) % Plt Count 241 (150-400) K/uL MPV 10.00 (7.40-12.00) fL Neut % (Auto) 61.0 (48.0-80.0) % Lymph % (Auto) 31.4 (16.0-40.0) % [place] % (Auto) 6.6 (0.0-15.0) % Eos % (Auto) 0.8 (0.0-7.0) % Baso % (Auto) 0.2 (0.0-1.5) % Neut # (Auto) 6.3 H (1.4-5.7) K/uL Lymph # (Auto) 3.2 H (0.6-2.4) K/uL [place] # (Auto) 0.7 (0.0-0.8) K/uL Eos # (Auto) 0.1 (0.0-0.7) K/uL Baso # (Auto) 0.0 (0.0-0.1) K/uL Nucleated RBC % 0.0 /100WBC Nucleated RBCs # 0 K/uL Sodium 136 (136-145) mmol/L Potassium 3.8 (3.5-5.1) mmol/L Chloride 102 (98-107) mmol/L Carbon Dioxide 27.6 (21.0-32.0) mmol/L BUN 10 (7.0-18.0) mg/dL Creatinine 0.8 (0.6-1.0) mg/dL Est Cr Clr Drug Dosing 110.39 mL/min Estimated GFR (MDRD) > 60.0 ml/min Glucose 137 H (74-106) mg/dL Calcium 8.8 (8.5-10.1) mg/dL Total Bilirubin 0.4 (0.2-1.0) mg/dL AST 18 (15-37) IU/L ALT 27 (14-63) IU/L Alkaline Phosphatase 88 (46-116) U/L Total Protein 6.8 (6.4-8.2) g/dL Albumin 3.4 (3.4-5.0) g/dL Globulin 3.4 (2.6-4.0) g/dL Albumin/Globulin Ratio 1.0 (0.9-1.6) HCG, Qual (NEG) HCG, Quant mIU/mL Urine Color DARK YELLOW Urine Appearance CLOUDY Urine pH 5.5 (5.0-8.0) Ur Specific [place] >= 1.030 (1.001-1.035) Urine Protein TRACE H (NEGATIVE) mg/dL Urine Glucose (UA) NEGATIVE (NEGATIVE) mg/dL Urine Ketones TRACE H (NEGATIVE) mg/dL Urine Occult Blood NEGATIVE (NEGATIVE) Urine Nitrite NEGATIVE (NEGATIVE) Urine Bilirubin SMALL H (NEGATIVE) Urine Ictotest NEGATIVE Urine Urobilinogen 1.0 (<2.0) EU/dL Ur Leukocyte Esterase TRACE H (NEGATIVE) Urine RBC NONE SEEN (0-2/HPF) Urine WBC 3-5 (0-5/HPF) Ur Squamous Epith Cells MODERATE Urine Bacteria 3+ H (NEGATIVE) Urine Mucus LIGHT (NONE-MOD) Blood Type Antibody Screen 04/14/18 04/14/18 04/15/18 Range/Units 21:25 23:37 04:55 WBC (4.0-11.0) K/uL RBC (4.30-5.90) M/uL Hgb 12.1 (12.0-16.0) g/dL Hct 35.4 L (36.0-46.0) % MCV (80.0-98.0) fL MCH (27.0-32.0) pg MCHC (31.0-37.0) g/dL RDW Std Deviation (28.0-62.0) fl RDW Coeff of Jesus (11.0-15.0) % Plt Count (150-400) K/uL MPV (7.40-12.00) fL Neut % (Auto) (48.0-80.0) % Lymph % (Auto) (16.0-40.0) % [place] % (Auto) (0.0-15.0) % Eos % (Auto) (0.0-7.0) % Baso % (Auto) (0.0-1.5) % Neut # (Auto) (1.4-5.7) K/uL Lymph # (Auto) (0.6-2.4) K/uL [place] # (Auto) (0.0-0.8) K/uL Eos # (Auto) (0.0-0.7) K/uL Baso # (Auto) (0.0-0.1) K/uL Nucleated RBC % /100WBC Nucleated RBCs # K/uL Sodium (136-145) mmol/L Potassium (3.5-5.1) mmol/L Chloride (98-107) mmol/L Carbon Dioxide (21.0-32.0) mmol/L BUN (7.0-18.0) mg/dL Creatinine (0.6-1.0) mg/dL Est Cr Clr Drug Dosing mL/min Estimated GFR (MDRD) ml/min Glucose (74-106) mg/dL Calcium (8.5-10.1) mg/dL Total Bilirubin (0.2-1.0) mg/dL AST (15-37) IU/L ALT (14-63) IU/L Alkaline Phosphatase (46-116) U/L Total Protein (6.4-8.2) g/dL Albumin (3.4-5.0) g/dL Globulin (2.6-4.0) g/dL Albumin/Globulin Ratio (0.9-1.6) HCG, Qual (NEG) HCG, Quant 6769.0 mIU/mL Urine Color Urine Appearance Urine pH (5.0-8.0) Ur Specific [place] (1.001-1.035) Urine Protein (NEGATIVE) mg/dL Urine Glucose (UA) (NEGATIVE) mg/dL Urine Ketones (NEGATIVE) mg/dL Urine Occult Blood (NEGATIVE) Urine Nitrite (NEGATIVE) Urine Bilirubin (NEGATIVE) Urine Ictotest Urine Urobilinogen (<2.0) EU/dL Ur Leukocyte Esterase (NEGATIVE) Urine RBC (0-2/HPF) Urine WBC (0-5/HPF) Ur Squamous Epith Cells Urine Bacteria (NEGATIVE) Urine Mucus (NONE-MOD) Blood Type A POSITIVE Antibody Screen NEGATIVE 04/15/18 04/15/18 Range/Units 04:59 09:35 WBC (4.0-11.0) K/uL RBC (4.30-5.90) M/uL Hgb (12.0-16.0) g/dL Hct (36.0-46.0) % MCV (80.0-98.0) fL MCH (27.0-32.0) pg MCHC (31.0-37.0) g/dL RDW Std Deviation (28.0-62.0) fl RDW Coeff of Jesus (11.0-15.0) % Plt Count (150-400) K/uL MPV (7.40-12.00) fL Neut % (Auto) (48.0-80.0) % Lymph % (Auto) (16.0-40.0) % [place] % (Auto) (0.0-15.0) % Eos % (Auto) (0.0-7.0) % Baso % (Auto) (0.0-1.5) % Neut # (Auto) (1.4-5.7) K/uL Lymph # (Auto) (0.6-2.4) K/uL [place] # (Auto) (0.0-0.8) K/uL Eos # (Auto) (0.0-0.7) K/uL Baso # (Auto) (0.0-0.1) K/uL Nucleated RBC % /100WBC Nucleated RBCs # K/uL Sodium (136-145) mmol/L Potassium (3.5-5.1) mmol/L Chloride (98-107) mmol/L Carbon Dioxide (21.0-32.0) mmol/L BUN (7.0-18.0) mg/dL Creatinine (0.6-1.0) mg/dL Est Cr Clr Drug Dosing mL/min Estimated GFR (MDRD) ml/min Glucose (74-106) mg/dL Calcium (8.5-10.1) mg/dL Total Bilirubin (0.2-1.0) mg/dL AST (15-37) IU/L ALT (14-63) IU/L Alkaline Phosphatase (46-116) U/L Total Protein (6.4-8.2) g/dL Albumin (3.4-5.0) g/dL Globulin (2.6-4.0) g/dL Albumin/Globulin Ratio (0.9-1.6) HCG, Qual POSITIVE H (NEG) HCG, Quant 7393.0 mIU/mL Urine Color Urine Appearance Urine pH (5.0-8.0) Ur Specific [place] (1.001-1.035) Urine Protein (NEGATIVE) mg/dL Urine Glucose (UA) (NEGATIVE) mg/dL Urine Ketones (NEGATIVE) mg/dL Urine Occult Blood (NEGATIVE) Urine Nitrite (NEGATIVE) Urine Bilirubin (NEGATIVE) Urine Ictotest Urine Urobilinogen (<2.0) EU/dL Ur Leukocyte Esterase (NEGATIVE) Urine RBC (0-2/HPF) Urine WBC (0-5/HPF) Ur Squamous Epith Cells Urine Bacteria (NEGATIVE) Urine Mucus (NONE-MOD) Blood Type Antibody Screen Result Diagrams: 04/15/18 04:55 04/14/18 21:25 Problem List Initiated/Reviewed/Updated: Yes Orders Last 24hrs: Active Orders 24 hr Category Date Time Status Patient Status [ADT] Stat ADT 04/14/18 23:27 Active NPO Now [Nothing per Oral Now Diet] [DIET] Diet 04/15/18 Breakfast Active CULTURE URINE [RM] Stat Lab 04/14/18 21:20 Received Morphine Med 04/15/18 00:04 Active 5 - 8 mg IVPUSH Q4H PRN Sodium Chloride 0.9% [Normal Saline] 1,000 ml Med 04/15/18 00:15 Active IV ASDIRECTED Medication Orders Sodium Chloride (Normal Saline) 1,000 mls @ 125 mls/hr IV ASDIRECTED [facility] Last Admin: 04/15/18 12:37 Dose: 125 mls/hr Infusion: 04/15/18 12:05 Dose: 125 mls/hr Admin: 04/15/18 04:05 Dose: 125 mls/hr Morphine Sulfate (Morphine) 5 - 8 mg IVPUSH Q4H PRN PRN Reason: Pain (severe 7-10) Assessment/Plan Comment:: 28 years old patient admitted through emergency room with the rising beta hCG: Abnormal ultrasound consistent with her tubal . Most likely this patient will have diagnostic laparoscopy later today
[2018-04-15] MEDS ORDERED: Midazolam 1 MG/ML 2 ML SDV ONE (16:25)
[2018-04-15] MEDS ORDERED: Lidocaine 2% 5 ML SDV ONE (16:25)
[2018-04-15] MEDS ORDERED: Succinylcholine 200 MG/10 ML MDV ONE (16:25)
[2018-04-15] MEDS ORDERED: Ondansetron 4 MG/2 ML SDV ONE (16:25)
[2018-04-15] MEDS ORDERED: Propofol 200 MG/20 ML SDV ONE (16:25)
[2018-04-15] MEDS ORDERED: fentaNYL 250 MCG/5 ML SDV ONE (16:25)
[2018-04-15] MEDS ORDERED: Rocuronium 10 MG/ML 10 ML Syringe ONE (16:25)
[2018-04-15] MEDS ORDERED: ePHEDrine 50 MG/ML SDV ONE (17:47)
[2018-04-15] MEDS ORDERED: Glycopyrrolate 0.2 MG/ML SDV ONE ×2 (18:08→18:36)
[2018-04-15] MEDS ORDERED: fentaNYL 100 MCG/2 ML SDV ONE (18:16)
[2018-04-15] MEDS ORDERED: Labetalol 100 MG/20 ML MDV ONE (18:22)
[2018-04-15] MEDS ORDERED: Octyl 2-Cyanoacrylate 1 Tube ONE (18:32)
[2018-04-15] MEDS ORDERED: Neostigmine Methylsulfate 1 MG/ML 5 ML Syringe ONE (18:36)
[2018-04-15] MEDS ORDERED: Promethazine 25 MG/ML SDV IM PRN (18:42)
[2018-04-15] MEDS ORDERED: Acetaminophen/oxyCODONE 325-5 MG Tab PO PRN ×2 (18:42)
[2018-04-15] MEDS ORDERED: Ketorolac 30 MG/ML SDV IVPUSH ONE (18:42)
[2018-04-15] MEDS ORDERED: Ondansetron 4 MG/2 ML SDV IVPUSH PRN (18:42)
[2018-04-15] MEDS ORDERED: Morphine 4 MG/ML Syringe IVPUSH PRN (18:42)
--- NOTE | 2018-04-15 18:46 | PCM.OPNOTE ---
- General Post-Op/Procedure Note Date of Surgery/Procedure: 04/15/18 Operative Procedure(s): Dignostic Laparoscopy. left distal salpengectomy. Post-Op Diagnosis: Same Anesthesia Technique: General ET Tube Primary Surgeon: Timbo Walker EBL in mLs: 150 Complications: None Condition: Fair Free Text/Narrative:: Intake & Output 04/15/18 04/15/18 04/15/18 06:59 14:59 22:59 Intake Total 0 1206 Output Total 400 Balance -400 1206
[2018-04-15] MEDS ORDERED: Atropine 0.1 MG/ML 10 ML Syringe IVPUSH PRN ×2 (18:52)
[2018-04-15] MEDS ORDERED: 50% Dextrose in Water 50 ML Syringe IVPUSH PRN (18:52)
[2018-04-15] MEDS ORDERED: Albuterol 0.083% 2.5 MG/3 ML Neb Soln NEB PRN (18:52)
[2018-04-15] MEDS ORDERED: Naloxone 0.4 MG/ML Syringe IVPUSH PRN (18:52)
[2018-04-15] MEDS ORDERED: fentaNYL 100 MCG/2 ML SDV IVPUSH PRN (18:52)
[2018-04-15] MEDS ORDERED: EPINEPHrine 1:10,000 1 MG/10 ML Syringe IVPUSH PRN (18:52)
--- NOTE | 2018-04-15 19:41 | PCM.POSTAN ---
POST ANESTHESIA ASSESSMENT - MENTAL STATUS Mental Status: Alert, Oriented - RESPIRATORY Respiratory Status: Respiratory Rate WNL, Airway Patent, O2 Saturation Stable - CARDIOVASCULAR CV Status: Pulse Rate WNL, Blood Pressure Stable - GASTROINTESTINAL GI Status: No Symptoms - POST OP HYDRATION Hydration Status: Adequate & Stable
--- NOTE | 2018-04-15 20:06 | PCM48HPAN ---
Post Anesthesia Note - EVALUATION WITHIN 48HRS OF ANESTHETIC Vital Signs in Normal Range: Yes Patient Participated in Evaluation: Yes Respiratory Function Stable: Yes Airway Patent: Yes Cardiovascular Function Stable: Yes Hydration Status Stable: Yes Pain Control Satisfactory: Yes Nausea and Vomiting Control Satisfactory: Yes Mental Status Recovered: Yes Resp Rate: 17
[2018-04-16] MEDS ORDERED: Ketorolac 30 MG/ML SDV IVPUSH PRN (00:30)
--- NOTE | 2018-04-16 01:09 | OR ---
SURGEON: Timbo Walker MD DATE OF PROCEDURE: PREOPERATIVE DIAGNOSIS: Left tubal . POSTOPERATIVE DIAGNOSIS: Left tubal . OPERATION PERFORMED: Multiple puncture diagnostic laparoscopy, peritoneal lavage, left distal salpingectomy. POT ROOM SUPERVISOR: OR tech. ANESTHESIA: General endotracheal intubation, Agustin Singletary and Dr. Martinez. ESTIMATED BLOOD LOSS: 150 mL including the blood in the peritoneal cavity. COMPLICATIONS: None. FINDING: A ruptured left tubal . INDICATION FOR SURGERY: This patient is 28. She is unsure of her last menstrual cycle. She presented to the ER with abdominal pain and positive test. Ultrasound shows empty uterus. HCG level was 6700 and the ultrasound confirmed left tubal . PROCEDURE IN DETAIL: The patient was brought to the OR, properly identified. After adequate level of anesthesia, the patient placed in lithotomy position with an access to the abdomen and the vagina. The patient was prepped and draped in sterile fashion as usual. Straight catheter was used to empty the bladder and Hulka manipulator was placed in the uterus for manipulation. The operation started by placing the Veress needle in the peritoneal cavity and that cavity insufflated with 3.5 L of carbon dioxide and then utilizing the Visiport technique, the peritoneal cavity was entered. Once we entered the peritoneal cavity, there was sign of hematoperitoneum which was confirmed with tubal . The patient placed in Trendelenburg and 10 and 12 trocar placed in the left iliac fossa and 5 mm trocar in the right iliac fossa. The operation was started. We estimated that there was 125-150 mL of blood in the pelvis. So, peritoneal lavage was performed and the blood evacuated from the peritoneal cavity. Once that was done, then Harmonic scapula was used to perform the left distal salpingectomy and the distal segment of the tubes placed in an endobag and removed laparoscopically. After the thorough irrigation of the pelvis, there was no oozing, no bleeding. Satisfied with these findings, the procedure was ended. The multiple laparoscopic incisions closed in layers. Instrument and sponge count was correct. The patient tolerated the procedure well, went to recovery room in stable general condition. GISELA / XI /[id number]
[2018-04-16 07:11] LABS: CHLORIDE,CL 105 mmol/L (98-107); SODIUM,NA 137 mmol/L (136-145)
--- NOTE | 2018-04-16 11:15 | PCM.SURGPN ---
- General Info Date of Service: 04/16/18 POD#: 1 Functional Status: Reports: Pain Controlled - Review of Systems General: Reports: No Symptoms HEENT: Reports: No Symptoms Pulmonary: Reports: No Symptoms Cardiovascular: Reports: No Symptoms Gastrointestinal: Reports: No Symptoms Genitourinary: Reports: No Symptoms Musculoskeletal: Reports: No Symptoms Skin: Reports: No Symptoms Neurological: Reports: No Symptoms Psychiatric: Reports: No Symptoms - Patient Data Vitals - Most Recent: Last Vital Signs Temp 36.5 C 04/16/18 07:56 Pulse 89 04/16/18 07:56 Resp 18 04/16/18 07:56 BP 113/57 L 04/16/18 07:56 Pulse Ox 100 04/16/18 07:56 Weight - Most Recent: 117.39 kg I&O - Last 24 Hours: Intake & Output 04/15/18 04/16/18 04/16/18 22:59 06:59 14:59 Intake Total 2806 1000 Output Total 1200 Balance 2806 -200 Lab Results Last 24 Hrs: Laboratory Results - last 24 hr 04/16/18 04/16/18 Range/Units 06:28 06:28 WBC 7.81 (4.0-11.0) K/uL RBC 3.33 L (4.30-5.90) M/uL Hgb 11.1 L (12.0-16.0) g/dL Hct 33.0 L (36.0-46.0) % MCV 99.1 H (80.0-98.0) fL MCH 33.3 H (27.0-32.0) pg MCHC 33.6 (31.0-37.0) g/dL RDW Std Deviation 42.7 (28.0-62.0) fl RDW Coeff of Jesus 12 (11.0-15.0) % Plt Count 215 (150-400) K/uL MPV 9.90 (7.40-12.00) fL Neut % (Auto) 61.2 (48.0-80.0) % Lymph % (Auto) 33.0 (16.0-40.0) % [place] % (Auto) 5.0 (0.0-15.0) % Eos % (Auto) 0.5 (0.0-7.0) % Baso % (Auto) 0.3 (0.0-1.5) % Neut # (Auto) 4.8 (1.4-5.7) K/uL Lymph # (Auto) 2.6 H (0.6-2.4) K/uL [place] # (Auto) 0.4 (0.0-0.8) K/uL Eos # (Auto) 0.0 (0.0-0.7) K/uL Baso # (Auto) 0.0 (0.0-0.1) K/uL Nucleated RBC % 0.0 /100WBC Nucleated RBCs # 0 K/uL Sodium 137 (136-145) mmol/L Potassium 3.9 (3.5-5.1) mmol/L Chloride 105 (98-107) mmol/L Carbon Dioxide 25.9 (21.0-32.0) mmol/L BUN 7 (7.0-18.0) mg/dL Creatinine 0.6 (0.6-1.0) mg/dL Est Cr Clr Drug Dosing 147.19 mL/min Estimated GFR (MDRD) > 60.0 ml/min Glucose 105 (74-106) mg/dL Calcium 8.2 L (8.5-10.1) mg/dL Aly Results Last 24 Hrs: Microbiology 04/14/18 21:20 Urine Culture - Final Urine, Clean Catch MIXED YURI >100,000 CFU/ML Med Orders - Current: Current Medications Albuterol (Proventil Neb Soln) 2.5 mg NEB ONETIME PRN PRN Reason: Wheezing Atropine Sulfate (Atropine 0.1 Mg/Ml) 0.5 mg IVPUSH ASDIRECTED PRN PRN Reason: Hypo-perfusion Atropine Sulfate (Atropine 0.1 Mg/Ml) 1 mg IVPUSH ASDIRECTED PRN PRN Reason: Hypo-Perfusion Dextrose/Water (Dextrose 50% In Water) 50 ml IVPUSH ASDIRECTED PRN PRN Reason: Hypoglycemia Epinephrine HCl (Epinephrine 1:10,000) 1 mg IVPUSH ASDIRECTED PRN PRN Reason: ACLS Guidelines Fentanyl (Sublimaze) 50 mcg IVPUSH Q5M PRN PRN Reason: Pain Last Admin: 04/15/18 19:21 Dose: 50 mcg Sodium Chloride (Normal Saline) 1,000 mls @ 125 mls/hr IV ASDIRECTED MADELIN Last Admin: 04/15/18 12:37 Dose: 125 mls/hr Ketorolac Tromethamine (Toradol) 30 mg IVPUSH Q6H PRN PRN Reason: Pain (severe 7-10) Stop: 04/20/18 00:31 Last Admin: 04/16/18 10:40 Dose: 30 mg Morphine Sulfate (Morphine) 5 - 8 mg IVPUSH Q4H PRN PRN Reason: Pain (severe 7-10) Morphine Sulfate (Morphine) 4 mg IVPUSH Q2H PRN PRN Reason: Pain (severe 7-10) Naloxone HCl (Narcan) 0.1 mg IVPUSH ASDIRECTED PRN PRN Reason: Respiratory Depression Ondansetron HCl (Zofran) 4 mg IVPUSH Q6H PRN PRN Reason: Nausea/Vomiting Last Admin: 04/15/18 22:14 Dose: 4 mg Oxycodone/Acetaminophen (Percocet 325-5 Mg) 1 tab PO Q4H PRN PRN Reason: Pain (moderate 4-6) Oxycodone/Acetaminophen (Percocet 325-5 Mg) 2 tab PO Q4H PRN PRN Reason: Pain (moderate 4-6) Promethazine HCl (Phenergan) 25 mg IM Q6H PRN PRN Reason: Nausea/Vomiting Discontinued Medications Ephedrine Sulfate (Ephedrine Sulfate) Confirm Administered Dose 50 mg .ROUTE .STK-MED ONE Stop: 04/15/18 17:48 Fentanyl (Sublimaze) Confirm Administered Dose 250 mcg .ROUTE .STK-MED ONE Stop: 04/15/18 16:26 Fentanyl (Sublimaze) Confirm Administered Dose 100 mcg .ROUTE .STK-MED ONE Stop: 04/15/18 18:17 Glycopyrrolate (Robinul) Confirm Administered Dose 0.2 mg .ROUTE .STK-MED ONE Stop: 04/15/18 18:09 Glycopyrrolate (Robinul) Confirm Administered Dose 0.4 mg .ROUTE .STK-MED ONE Stop: 04/15/18 18:37 Sodium Chloride (Normal Saline) 1,000 mls @ 999 mls/hr IV STAT ONE Stop: 04/15/18 00:25 Last Admin: 04/14/18 23:42 Dose: 999 mls/hr Ceftriaxone Sodium/Dextrose 1 (gm/ Premix) 50 mls @ 100 mls/hr IV ONETIME ONE Stop: 04/15/18 00:01 Last Admin: 04/14/18 23:49 Dose: 100 mls/hr Ketorolac Tromethamine (Toradol) 30 mg IVPUSH ONETIME ONE Stop: 04/15/18 18:43 Last Admin: 04/15/18 19:19 Dose: 30 mg Labetalol HCl (Normodyne) Confirm Administered Dose 100 mg .ROUTE .STK-MED ONE Stop: 04/15/18 18:23 Lidocaine (Xylocaine-Mpf 2%) Confirm Administered Dose 5 ml .ROUTE .STK-MED ONE Stop: 04/15/18 16:26 Midazolam HCl (Versed 1 Mg/Ml) Confirm Administered Dose 2 mg .ROUTE .STK-MED ONE Stop: 04/15/18 16:26 Neostigmine Methylsulfate (Neostigmine) Confirm Administered Dose 5 mg .ROUTE .STK-MED ONE Stop: 04/15/18 18:37 Octyl Cyanoacrylate (Dermabond Advance) Confirm Administered Dose 1 applic .ROUTE .STK-MED ONE Stop: 04/15/18 18:33 Ondansetron HCl (Zofran) Confirm Administered Dose 4 mg .ROUTE .STK-MED ONE Stop: 04/15/18 16:26 Propofol (Diprivan 20 Ml) Confirm Administered Dose 200 mg .ROUTE .STK-MED ONE Stop: 04/15/18 16:26 Rocuronium [place] (Zemuron) Confirm Administered Dose 100 mg .ROUTE .STK-MED ONE Stop: 04/15/18 16:26 Succinylcholine Chloride (Quelicin) Confirm Administered Dose 200 mg .ROUTE .STK -MED ONE Stop: 04/15/18 16:26 - Exam Wound/Incisions: Healing Well General: Alert, Oriented HEENT: Pupils Equal Neck: Supple Lungs: Clear to Auscultation, Normal Respiratory Effort Cardiovascular: Regular Rate, Regular Rhythm GI/Abdominal Exam: Normal Bowel Sounds, Soft, Non-Tender, No Organomegaly, No Distention, No Abnormal Bruit, No Mass, Pelvis Stable Extremities: Normal Inspection, Normal Range of Motion, Non-Tender, No Pedal Edema, Normal Capillary Refill Skin: Warm, Dry, Intact Neurological: No New Focal Deficit Psy/Mental Status: Alert, Normal Affect, Normal Mood - Problem List Review Problem List Initiated/Reviewed/Updated: Yes - My Orders Last 24 Hours: Active Orders 24 hr Category Date Time Status Patient Status [ADT] Routine ADT 04/15/18 18:43 Active Antiembolic Devices [RC] PER UNIT ROUTINE Care 04/15/18 18:43 Active Blood Glucose Check, Bedside [RC] PRN Care 04/15/18 18:53 Active Notify Provider Vital Signs [RC] ASDIRECTED Care 04/15/18 18:43 Active Notify Provider Vital Signs [RC] ASDIRECTED Care 04/15/18 18:53 Active Oxygen Therapy [RC] ASDIRECTED Care 04/15/18 18:43 Active Oxygen Therapy [RC] PRN Care 04/15/18 18:53 Active RT Aerosol Therapy [RC] ASDIRECTED Care 04/15/18 18:53 Active RT Aerosol Therapy [RC] ASDIRECTED Care 04/15/18 18:53 Active RT Incentive Spirometry [RC] Q2HWA Care 04/15/18 18:43 Active Up With Assistance [RC] PER UNIT ROUTINE Care 04/15/18 18:43 Active Up ad Alexandra [RC] PER UNIT ROUTINE Care 04/15/18 18:43 Active Urinary Catheter Removal [RC] Per Unit Routine Care 04/15/18 18:43 Active Vital Signs [RC] Q4H Care 04/15/18 18:43 Active Regular Diet [DIET] Diet 04/16/18 Breakfast Active Acetaminophen/oxyCODONE [Percocet 325-5 MG] Med 04/15/18 18:42 Active 1 tab PO Q4H PRN Acetaminophen/oxyCODONE [Percocet 325-5 MG] Med 04/15/18 18:42 Active 2 tab PO Q4H PRN Albuterol [Proventil Neb Soln] Med 04/15/18 18:52 Active 2.5 mg NEB ONETIME PRN Atropine [Atropine 0.1 MG/ML] Med 04/15/18 18:52 Active 0.5 mg IVPUSH ASDIRECTED PRN Atropine [Atropine 0.1 MG/ML] Med 04/15/18 18:52 Active 1 mg IVPUSH ASDIRECTED PRN Dextrose 50% in Water Med 04/15/18 18:52 Active 50 ml IVPUSH ASDIRECTED PRN EPINEPHrine [EPINEPHrine 1:10,000] Med 04/15/18 18:52 Active 1 mg IVPUSH ASDIRECTED PRN Ketorolac [Toradol] Med 04/16/18 00:30 Active 30 mg IVPUSH Q6H PRN Morphine Med 04/15/18 18:42 Active 4 mg IVPUSH Q2H PRN Naloxone [Narcan] Med 04/15/18 18:52 Active 0.1 mg IVPUSH ASDIRECTED PRN Ondansetron [Zofran] Med 04/15/18 18:42 Active 4 mg IVPUSH Q6H PRN Promethazine [Phenergan] Med 04/15/18 18:42 Active 25 mg IM Q6H PRN fentaNYL [Sublimaze] Med 04/15/18 18:52 Active 50 mcg IVPUSH Q5M PRN Peripheral IV Discontinue [OM.PC] Routine Oth 04/15/18 18:43 Ordered Sequential Compression Device [OM.PC] Per Unit Routine Oth 04/15/18 18:43 Ordered Resuscitation Status Routine Resus Stat 04/15/18 18:42 Ordered Medication Orders Albuterol (Proventil Neb Soln) 2.5 mg NEB ONETIME PRN PRN Reason: Wheezing Atropine Sulfate (Atropine 0.1 Mg/Ml) 0.5 mg IVPUSH ASDIRECTED PRN PRN Reason: Hypo-perfusion Atropine Sulfate (Atropine 0.1 Mg/Ml) 1 mg IVPUSH ASDIRECTED PRN PRN Reason: Hypo-Perfusion Dextrose/Water (Dextrose 50% In Water) 50 ml IVPUSH ASDIRECTED PRN PRN Reason: Hypoglycemia Epinephrine HCl (Epinephrine 1:10,000) 1 mg IVPUSH ASDIRECTED PRN PRN Reason: ACLS Guidelines Fentanyl (Sublimaze) 50 mcg IVPUSH Q5M PRN PRN Reason: Pain Last Admin: 04/15/18 19:21 Dose: 50 mcg Sodium Chloride (Normal Saline) 1,000 mls @ 125 mls/hr IV ASDIRECTED MADELIN Last Admin: 04/15/18 12:37 Dose: 125 mls/hr Infusion: 04/15/18 12:05 Dose: 125 mls/hr Admin: 04/15/18 04:05 Dose: 125 mls/hr Ketorolac Tromethamine (Toradol) 30 mg IVPUSH Q6H PRN PRN Reason: Pain (severe 7-10) Stop: 04/20/18 00:31 Last Admin: 04/16/18 10:40 Dose: 30 mg Morphine Sulfate (Morphine) 5 - 8 mg IVPUSH Q4H PRN PRN Reason: Pain (severe 7-10) Morphine Sulfate (Morphine) 4 mg IVPUSH Q2H PRN PRN Reason: Pain (severe 7-10) Naloxone HCl (Narcan) 0.1 mg IVPUSH ASDIRECTED PRN PRN Reason: Respiratory Depression Ondansetron HCl (Zofran) 4 mg IVPUSH Q6H PRN PRN Reason: Nausea/Vomiting Last Admin: 04/15/18 22:14 Dose: 4 mg Oxycodone/Acetaminophen (Percocet 325-5 Mg) 1 tab PO Q4H PRN PRN Reason: Pain (moderate 4-6) Oxycodone/Acetaminophen (Percocet 325-5 Mg) 2 tab PO Q4H PRN PRN Reason: Pain (moderate 4-6) Promethazine HCl (Phenergan) 25 mg IM Q6H PRN PRN Reason: Nausea/Vomiting - Assessment Assessment (Free Text/Narrative):: Doing well. - Plan Plan (Free Text/Narrative):: Send home today.
== END 2018-04-16 12:20 | disposition home or self-care (01) ==
LOC: MW.ED 20:56 → MW.MS 23:27
PROVIDERS: ADMIT Obstetrics & Gynecology; ATTEND Obstetrics & Gynecology
DX: O00.102 Left tubal pregnancy without intrauterine pregnancy (principal); F17.210 Nicotine dependence, cigarettes, uncomplicated
CPT/HCPCS: 36415; 59151; 76817; 80048; 80053; 81001; 84702; 84703; 85014; 85018; 85025; 86850; 86900; 86901; 87086; 96365; 99285; A9270; J0330; J0696; J1885; J2001; J2250; J2405; J2704; J3010; J3490; J7040; 88305; 99283

== ENCOUNTER 2018-11-20 19:24 | Emergency (ER) | payer SELFPAY ==
--- NOTE | 2018-11-20 19:51 | EDM.PDOC ---
ED HPI GENERAL MEDICAL PROBLEM - General Chief Complaint: SEATING UPHOLSTERER Problem Stated Complaint: CHECK Time Seen by Provider: 11/20/18 19:51 - History of Present Illness INITIAL COMMENTS - FREE TEXT/NARRATIVE: HISTORY AND PHYSICAL: History of present illness: Patient is a 28-year-old female presents to the ED with positive test. She states she has a history of tubal 7 months ago. She was told if she were to get again to seek medical care. She states she had two positive home tests today. She denies any abdominal pain or bleeding. LMP 10/10/18. She states this period was really light and is not sure if it was a true period. Last period prior to this was in August. Review of systems: As per history of present illness and below otherwise all systems reviewed and negative. Past medical history: As per history of present illness and as reviewed below otherwise noncontributory. Surgical history: As per history of present illness and as reviewed below otherwise noncontributory. Social history: No reported history of drug or alcohol abuse. Family history: As per history of present illness and as reviewed below otherwise noncontributory. Physical exam: General: Patient sitting comfortably in no acute distress and nontoxic appearing HEENT: Atraumatic, normocephalic, pupils reactive, negative for conjunctival pallor or scleral icterus, mucous membranes moist, throat clear, neck supple, nontender, trachea midline. No meningeal signs. Lungs: Clear to auscultation, breath sounds equal bilaterally, chest nontender. Heart: S1S2, regular, negative for clicks, rubs, or overt murmur. Abdomen: Soft, nondistended, nontender. Negative for masses or hepatosplenomegaly. Negative for costovertebral tenderness. No rigidity, rebound , guarding. Pelvis: Stable nontender. Genitourinary: Deferred. Rectal: Deferred. Extremities: Atraumatic, negative for cords or calf pain. Neurovascular unremarkable. Neuro: Awake, alert, oriented. Cranial nerves II through XII unremarkable. Cerebellum unremarkable. Motor and sensory unremarkable throughout. Exam nonfocal. Notes: Diagnostics: UA, urine hcg, hcg quant, CBC, CMP Therapeutics: [] Prescriptions: Impression: , medical screening exam Plan: Follow up SEATING UPHOLSTERER Return to ED as needed as discussed Definitive disposition and diagnosis as appropriate pending reevaluation and review of above. - Related Data Allergies Allergy/AdvReac Type Severity Reaction Status Date / Time No Known Allergies Allergy Verified 11/20/18 19:44 Home Meds: Home Meds . [No Known Home Meds] 04/10/18 [History] Past Medical History - Past Health History Medical/Surgical History: Denies Medical/Surgical History HEENT History: Reports: None Cardiovascular History: Reports: None Respiratory History: Reports: None Gastrointestinal History: Reports: None Genitourinary History: Reports: None SEATING UPHOLSTERER History: Reports: , Spontaneous Musculoskeletal History: Reports: None Neurological History: Reports: None Psychiatric History: Reports: None Endocrine/Metabolic History: Reports: None Hematologic History: Reports: None Immunologic History: Reports: None Oncologic (Cancer) History: Reports: None Dermatologic History: Reports: None - Past Surgical History Head Surgeries/Procedures: Reports: None HEENT Surgical History: Reports: None Cardiovascular Surgical History: Reports: None Respiratory Surgical History: Reports: None GI Surgical History: Reports: None Female Surgical History: Reports: Other (See Below) Other Female Surgeries/Procedures: unilateral salpingectomy d/t tubal Endocrine Surgical History: Reports: None Neurological Surgical History: Reports: None Musculoskeletal Surgical History: Reports: None Oncologic Surgical History: Reports: None Dermatological Surgical History: Reports: None Social & Family History - Family History Family Medical History: Noncontributory - Tobacco Use Smoking Status *Q: Current Every Day Smoker Years of Tobacco use: 15 Packs/Tins Daily: 1 - Caffeine Use Caffeine Use: Reports: Soda - Recreational Drug Use Recreational Drug Use: No ED ROS GENERAL - Review of Systems Review Of Systems: ROS reveals no pertinent complaints other than HPI. ED EXAM, GI/ABD - Physical Exam Exam: See Below (see dictation) Course - Vital Signs Last Recorded V/S: Last Vital Signs Temp 98.3 F 11/20/18 19:39 Pulse 122 H 11/20/18 19:39 Resp 16 11/20/18 19:39 BP 136/97 H 11/20/18 19:39 Pulse Ox 97 11/20/18 19:39 - Orders/Labs/Meds Labs: Laboratory Tests 11/20/18 11/20/18 11/20/18 Range/Units 19:35 19:35 20:15 WBC 9.98 (4.0-11.0) K/uL RBC 4.07 L (4.30-5.90) M/uL Hgb 14.0 (12.0-16.0) g/dL Hct 40.5 (36.0-46.0) % MCV 99.5 H (80.0-98.0) fL MCH 34.4 H (27.0-32.0) pg MCHC 34.6 (31.0-37.0) g/dL RDW Std Deviation 43.3 (28.0-62.0) fl RDW Coeff of Jesus 12 (11.0-15.0) % Plt Count 289 (150-400) K/uL MPV 9.80 (7.40-12.00) fL Neut % (Auto) 59.8 (48.0-80.0) % Lymph % (Auto) 32.3 (16.0-40.0) % [place] % (Auto) 6.6 (0.0-15.0) % Eos % (Auto) 1.0 (0.0-7.0) % Baso % (Auto) 0.3 (0.0-1.5) % Neut # (Auto) 6.0 H (1.4-5.7) K/uL Lymph # (Auto) 3.2 H (0.6-2.4) K/uL [place] # (Auto) 0.7 (0.0-0.8) K/uL Eos # (Auto) 0.1 (0.0-0.7) K/uL Baso # (Auto) 0.0 (0.0-0.1) K/uL Nucleated RBC % 0.0 /100WBC Nucleated RBCs # 0 K/uL Sodium (136-145) mmol/L Potassium (3.5-5.1) mmol/L Chloride (98-107) mmol/L Carbon Dioxide (21.0-32.0) mmol/L BUN (7.0-18.0) mg/dL Creatinine (0.6-1.0) mg/dL Est Cr Clr Drug Dosing mL/min Estimated GFR (MDRD) ml/min Glucose (74-106) mg/dL Calcium (8.5-10.1) mg/dL Total Bilirubin (0.2-1.0) mg/dL AST (15-37) IU/L ALT (14-63) IU/L Alkaline Phosphatase (46-116) U/L Total Protein (6.4-8.2) g/dL Albumin (3.4-5.0) g/dL Globulin (2.6-4.0) g/dL Albumin/Globulin Ratio (0.9-1.6) HCG, Quant mIU/mL Urine Color YELLOW Urine Appearance CLEAR Urine pH 6.0 (5.0-8.0) Ur Specific [place] 1.025 (1.001-1.035) Urine Protein NEGATIVE (NEGATIVE) mg/dL Urine Glucose (UA) NEGATIVE (NEGATIVE) mg/dL Urine Ketones NEGATIVE (NEGATIVE) mg/dL Urine Occult Blood NEGATIVE (NEGATIVE) Urine Nitrite NEGATIVE (NEGATIVE) Urine Bilirubin NEGATIVE (NEGATIVE) Urine Urobilinogen 1.0 (<2.0) EU/dL Ur Leukocyte Esterase NEGATIVE (NEGATIVE) Urine HCG, Qual POSITIVE (NEGATIVE) 11/20/18 Range/Units 20:15 WBC (4.0-11.0) K/uL RBC (4.30-5.90) M/uL Hgb (12.0-16.0) g/dL Hct (36.0-46.0) % MCV (80.0-98.0) fL MCH (27.0-32.0) pg MCHC (31.0-37.0) g/dL RDW Std Deviation (28.0-62.0) fl RDW Coeff of Jesus (11.0-15.0) % Plt Count (150-400) K/uL MPV (7.40-12.00) fL Neut % (Auto) (48.0-80.0) % Lymph % (Auto) (16.0-40.0) % [place] % (Auto) (0.0-15.0) % Eos % (Auto) (0.0-7.0) % Baso % (Auto) (0.0-1.5) % Neut # (Auto) (1.4-5.7) K/uL Lymph # (Auto) (0.6-2.4) K/uL [place] # (Auto) (0.0-0.8) K/uL Eos # (Auto) (0.0-0.7) K/uL Baso # (Auto) (0.0-0.1) K/uL Nucleated RBC % /100WBC Nucleated RBCs # K/uL Sodium 142 (136-145) mmol/L Potassium 4.0 (3.5-5.1) mmol/L Chloride 107 (98-107) mmol/L Carbon Dioxide 25.8 (21.0-32.0) mmol/L BUN 6 L (7.0-18.0) mg/dL Creatinine 0.8 (0.6-1.0) mg/dL Est Cr Clr Drug Dosing 106.56 mL/min Estimated GFR (MDRD) > 60.0 ml/min Glucose 113 H (74-106) mg/dL Calcium 8.7 (8.5-10.1) mg/dL Total Bilirubin 0.2 (0.2-1.0) mg/dL AST 14 L (15-37) IU/L ALT 22 (14-63) IU/L Alkaline Phosphatase 96 (46-116) U/L Total Protein 7.1 (6.4-8.2) g/dL Albumin 3.6 (3.4-5.0) g/dL Globulin 3.5 (2.6-4.0) g/dL Albumin/Globulin Ratio 1.0 (0.9-1.6) HCG, Quant 557.0 mIU/mL Urine Color Urine Appearance Urine pH (5.0-8.0) Ur Specific [place] (1.001-1.035) Urine Protein (NEGATIVE) mg/dL Urine Glucose (UA) (NEGATIVE) mg/dL Urine Ketones (NEGATIVE) mg/dL Urine Occult Blood (NEGATIVE) Urine Nitrite (NEGATIVE) Urine Bilirubin (NEGATIVE) Urine Urobilinogen (<2.0) EU/dL Ur Leukocyte Esterase (NEGATIVE) Urine HCG, Qual (NEGATIVE) Departure - Departure Time of Disposition: 20:52 Disposition: Home, Self-Care 01 Condition: Good Clinical Impression: - Discharge Information Referrals: PCP,None [Primary Care Provider] - Forms: ED Department Discharge Additional Instructions: The following information is given to patients seen in the emergency department who are being discharged to home. This information is to outline your options for follow-up care. We provide all patients seen in our emergency department with a follow-up referral. The need for follow-up, as well as the timing and circumstances, are variable depending upon the specifics of your emergency department visit. If you don't have a primary care physician on staff, we will provide you with a referral. We always advise you to contact your personal physician following an emergency department visit to inform them of the circumstance of the visit and for follow-up with them and/or the need for any referrals to a consulting specialist. The emergency department will also refer you to a specialist when appropriate. This referral assures that you have the opportunity for follow-up care with a specialist. All of these measure are taken in an effort to provide you with optimal care, which includes your follow-up. Under all circumstances we always encourage you to contact your private physician who remains a resource for coordinating your care. When calling for follow-up care, please make the office aware that this follow-up is from your recent emergency room visit. If for any reason you are refused follow-up, please contact the Emergency Department at and asked to speak to the emergency department charge nurse. [facility] [address] [place] [id number] [facility] - [facility] [address] [place] [id number] Follow up SEATING UPHOLSTERER Return to ED as needed as discussed
[2018-11-20 20:47] LABS: BLOOD UREA NITROGEN,BUN 6 mg/dL (7.0-18.0); CARBON DIOXIDE,CO2 25.8 mmol/L (21.0-32.0); CHLORIDE,CL 107 mmol/L (98-107); GLUCOSE RANDOM 113 mg/dL (74-106); SODIUM,NA 142 mmol/L (136-145)
== END 2018-11-20 21:20 | disposition home or self-care (01) ==
LOC: MW.ED 19:24
DX: Z32.01 Encounter for pregnancy test, result positive (principal); O99.89 Other specified diseases and conditions complicating pregnancy, childbirth and the puerperium; R05 Cough; R06.02 Shortness of breath; O21.9 Vomiting of pregnancy, unspecified; O99.331 Smoking (tobacco) complicating pregnancy, first trimester; F17.200 Nicotine dependence, unspecified, uncomplicated; Z87.59 Personal history of other complications of pregnancy, childbirth and the puerperium; Z90.721 Acquired absence of ovaries, unilateral; Z3A.00 Weeks of gestation of pregnancy not specified
CPT/HCPCS: 36415; 80053; 81003; 81025; 84702; 85025; 99283